=== PATIENT | male | born 1990 | race Caucasian/White ===

== ENCOUNTER 2019-05-10 23:05 | Emergency (ER) | payer MEDICAID ==
[~2019-05-10] VITALS: Ht 185.4 cm; Wt 75.0 kg
[2019-05-10] MEDS ORDERED: ondansetron/PF 4mg/2ml inj IV ONE (23:40)
[2019-05-10] MEDS ORDERED: morphine 4 MG/ML inj SYRINge IV ONE (23:40)
[2019-05-10] MEDS ORDERED: morphine 2 MG/ML inj. syringe IV ONE (23:40)
[2019-05-10] MEDS ORDERED: ondansetron 4mg rapidly disintigrating tab PO ONE (23:40)
--- NOTE | 2019-05-10 23:42 | NUR ---
Ultrasonography at bedside at this time.
[2019-05-11] MEDS ORDERED: CefTRIAXone/D5W-Rocephin 1gm 50 ML IV ONE
[2019-05-11] MEDS ORDERED: ciprofloxacin lact 400MG/200ML 200 ML IV STA (01:03)
[2019-05-11] MEDS ORDERED: CIPR-259 PO (01:27)
[2019-05-11 05:10] VITALS: BP 103/70
[2019-05-11] MEDS ORDERED: ciprofloxacin lact 400MG/200ML 200 ML IV SCH (08:00)
== END 2019-05-11 05:11 | disposition home or self-care (01) ==
LOC: ER 23:06
DX: N45.1 Epididymitis (principal); N50.811 Right testicular pain
CPT/HCPCS: 76870; 96365; 96366; 96368; 96375; 99284; J0696; J2270; J2405; J0744